=== PATIENT | female | born 1990 | race Caucasian/White ===

== ENCOUNTER 2017-01-12 19:25 | Emergency (ER) | payer SELFPAY ==
[2017-01-12] MEDS ORDERED: Sodium Chloride 0.9% 1,000 ML PRIMARY IV ONE (19:47)
[2017-01-12] MEDS ORDERED: NORMAL SALINE 10 ML SYRINGE FLUSH IVP PRN (19:47)
[2017-01-12 19:56] LABS: BASOPHILS # (AUTO) 0.05 10*3/UL; BASOPHILS % (AUTO) 0.5 % (0-1); EOSINOPHILS % (AUTO) 1.2 % (0-8); HEMATOCRIT 39.2 % (37.0-47.0); HEMOGLOBIN 12.8 g/dL (12.0-16.0); IMM GRAN % (AUTO) 0.3 % (0-5); IMM GRAN# (AUTO) 0.03 10*3/UL; LYMPHOCYTES # (AUTO) 1.69 10*3/uL; LYMPHOCYTES % (AUTO) 18.1 % (10-50); MEAN CORPUSCULAR HEMOGLOBIN 29.1 PG (27-31); MEAN CORPUSCULAR HGB CONC 32.7 g/dL (33-37); MEAN PLATELET VOLUME 11.1 FL (7.4-12.2); MONOCYTES % (AUTO) 8.5 % (5-15); NEUTROPHILS # (AUTO) 6.68 10*3/UL; NEUTROPHILS % (AUTO) 71.4 % (50-80); PLATELET MORPHOLOGY COMMENT NORMAL MORPHOLOGY (NORM); RDW COEFFICIENT OF VARIATION 13.7 % (11.5-14.5); WHITE BLOOD COUNT 9.36 10^3/uL (4.8-10.8)
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
[2017-01-13 00:42] VITALS: TEMP 96.5
[2017-01-13 00:46] VITALS: RESP 16
--- NOTE | 2017-01-14 14:31 | DI ---
LEFT HAND EXAM, 01/12/2017 9:10 PM: Clinical History: Left thumb pain. Previous Exam: None at this facility. 3 views are submitted. There is no acute soft tissue, osseous, or joint abnormality. Reading: Normal left hand exam. Views of the thumb are also normal.
== END 2017-01-12 22:52 | disposition home or self-care (01) ==
LOC: ER 19:25
DX: S01.01XA Laceration without foreign body of scalp, initial encounter (principal); S63.602A Unspecified sprain of left thumb, initial encounter; V48.6XXA Car passenger injured in noncollision transport accident in traffic accident, initial encounter
CPT/HCPCS: 70450; 72125; 73130; 84703; 85025; 96360; 99283; J7030